=== PATIENT | male | born 1980 | race Hispanic/Latino ===

== ENCOUNTER 2021-07-20 11:31 | Outpatient (CLI) | payer BC | END 2021-07-20 11:32 | disposition home or self-care (01) | LOC: CSHMRI 11:31 | PROVIDERS: ATTEND Family Medicine | DX: M54.17 Radiculopathy, lumbosacral region (principal); R74.8 Abnormal levels of other serum enzymes; M32.9 Systemic lupus erythematosus, unspecified; M47.816 Spondylosis without myelopathy or radiculopathy, lumbar region; M25.78 Osteophyte, vertebrae | CPT/HCPCS: 72148 ==